=== PATIENT | female | born 1940 | race Caucasian/White ===

== ENCOUNTER → 2017-12-22 08:14 | Outpatient (CLI) | payer MEDICARE, OTHER ==
[2011-09-02 13:23] VITALS: BMI 26.6
[2017-12-22 08:48] LABS: ANION GAP 13.1 mmol/L (8-16); CALCIUM 8.7 mg/dL (8.5-10.1); CARBON DIOXIDE 24.5 mmol/L (21.0-32.0); CREATININE - SERUM 1.5 mg/dL (0.6-1.3); POTASSIUM - SERUM 4.6 mmol/L (3.5-5.1)
== END | disposition home or self-care (01) ==
LOC: D.LAB 08:14 → D.CT 08:30 → D.LAB 08:45 → D.CT 09:00
PROVIDERS: Family Medicine
DX: I73.9 Peripheral vascular disease, unspecified (principal)

== ENCOUNTER 2020-07-07 10:51 | Inpatient (IN) | payer MEDICARE, OTHER ==
[~2020-07-07] VITALS: Ht 172.7 cm; Wt 85.7 kg
[2020-07-07] MEDS ORDERED: ZYLOPRIM300 MG PO (10:59)
[2020-07-07] MEDS ORDERED: VITAMIN D400 UNI1 PO (10:59)
[2020-07-07] MEDS ORDERED: COREG6.25 MG PO (11:00)
[2020-07-07] MEDS ORDERED: PACERONE200 MG PO (11:00)
[2020-07-07] MEDS ORDERED: PRAVACHOL40 MG PO (11:00)
[2020-07-07] MEDS ORDERED: DIPROLENE 0.05%60 M1 TOPICAL (11:01)
[2020-07-07] MEDS ORDERED: EFUDEX 5 % CREA40 GM TOPICAL (11:01)
[2020-07-07] MEDS ORDERED: LISINOPRIL-HCT1 EAC7 PO (11:02)
[2020-07-07] MEDS ORDERED: KENALOG 0.1 % O15 GM TOPICAL (11:02)
[2020-07-07 11:27] LABS: BASOPHILS 0.1 % (0-2); EOSINOPHILS 2.4 % (0-7); HEMATOCRIT 38.6 % (36.0-48.0); HEMOGLOBIN 12.5 g/dL (12-16); LYMPHOCYTES 8.3 % (15-50); MCH 34.3 pg (26.0-34.0); MCHC 32.4 g/dL (31.0-37.0); MEAN PLATELET VOLUME 10.8 fL (7.4-10.4); MONOCYTES 13.6 % (2-11); NEUTROPHILS 75.6 % (40-80); RBC 3.64 10x6/uL (4.00-5.40); RDW 14.5 % (11.5-14.5); WBC 7.4 10x3/uL (4.8-10.8)
[2020-07-07 11:41] LABS: ANION GAP 11.2 mmol/L (8-16); CALCIUM 8.4 mg/dL (8.5-10.1); CARBON DIOXIDE 24.3 mmol/L (21.0-32.0); CREATININE - SERUM 4.9 mg/dL (0.6-1.3)
[2020-07-07 11:47] LABS: BILIRUBIN - TOTAL 0.72 mg/dL (0.2-1.3); PROTEIN - SERUM 6.8 g/dL (6.4-8.2)
[2020-07-07 11:48] LABS: POTASSIUM - SERUM 4.5 mmol/L (3.5-5.1)
[2020-07-07 12:09] LABS: PLATELET COUNT 164 10x3/uL (130-400)
[2020-07-07 12:28] LABS: AMORPHOUS SEDIMENT <1+ /lpf (NONE SEEN); BACTERIA FEW /HPF (NONE SEEN); BILIRUBIN NEGATIVE (NEGATIVE); EPITHELIAL CELLS 0-5 /hpf (0-5); GRANULAR CAST RARE /lpf (NONE SEEN); KETONE NEGATIVE (NEGATIVE); NITRITE NEGATIVE (NEGATIVE); UROBILINOGEN NORMAL mg/dL (< 2)
[2020-07-07 13:09] VITALS: BP 99/71
[2020-07-07 14:05] VITALS: BP 108/57
--- NOTE | 2020-07-07 15:57 | NUR ---
ARRIVE TO ROOM VIA WHEELCHAIR. AMBULATES WITH CANE TO BED. SINUS STEFANIA ON TELEMETRY. ALERT AND ORIENTED X4. SCDS ON. NO SIGNS OF DISTRESS. IV INFUSING ORDERED. BP-123/63. CONTINUE ADMISSION PROCESS AND SAFETY PRECAUTIONS.
[2020-07-07 16:00] VITALS: BP 129/63; BMI 28.8
[2020-07-07 20:00] VITALS: BP 101/58
[2020-07-08 04:00] VITALS: BP 112/61
[2020-07-08 05:57] LABS: BASOPHILS 0.2 % (0-2); EOSINOPHILS 5.2 % (0-7); HEMATOCRIT 35.3 % (42.0-54.0); HEMOGLOBIN 11.4 g/dL (13.5-17.5); IMMATURE GRANULOCYTES 0.2 % (0-5); LYMPHOCYTES 10.3 % (15-50); MCH 33.8 pg (26.0-34.0); MCHC 32.3 g/dL (31.0-37.0); MCV 104.7 fL (80.0-100.0); MEAN PLATELET VOLUME 10.9 fL (7.4-10.4); NEUTROPHILS 71.1 % (40-80); PLATELET COUNT 154 10x3/uL (130-400); RBC 3.37 10x6/uL (4.20-6.10); RDW 14.5 % (11.5-14.5); WBC 5.9 10x3/uL (4.8-10.8)
[2020-07-08 06:13] LABS: ANION GAP 10.5 mmol/L (8-16); CALCIUM 7.8 mg/dL (8.5-10.1); CREATININE - SERUM 4.1 mg/dL (0.6-1.3); MAGNESIUM - SERUM 1.6 mg/dL (1.8-2.4); PHOSPHOROUS 3.7 mg/dL (2.5-4.9)
[2020-07-08 06:17] LABS: POTASSIUM - SERUM 3.5 mmol/L (3.5-5.1)
--- NOTE | 2020-07-08 07:50 | NUR ---
Recieved report pt awake in bed no complaints.
[2020-07-08 08:00] VITALS: BP 129/62
[2020-07-08 20:00] VITALS: BP 135/66
[2020-07-09] VITALS (9 sets, daily range): BP systolic 95–152; BP diastolic 56–73
[2020-07-09 06:06] LABS: BASOPHILS 0.2 % (0-2); EOSINOPHILS 5.7 % (0-7); HEMOGLOBIN 11.2 g/dL (13.5-17.5); IMMATURE GRANULOCYTES 0.2 % (0-5); LYMPHOCYTES 9.7 % (15-50); MCH 33.6 pg (26.0-34.0); MCV 105.1 fL (80.0-100.0); MEAN PLATELET VOLUME 10.4 fL (7.4-10.4); MONOCYTES 15.7 % (2-11); NEUTROPHILS 68.5 % (40-80); PLATELET COUNT 160 10x3/uL (130-400); RBC 3.33 10x6/uL (4.20-6.10); RDW 14.6 % (11.5-14.5); WBC 6.1 10x3/uL (4.8-10.8)
[2020-07-09 06:32] LABS: ANION GAP 13.9 mmol/L (8-16); CARBON DIOXIDE 21.7 mmol/L (21.0-32.0); CREATININE - SERUM 3.7 mg/dL (0.6-1.3); POTASSIUM - SERUM 3.6 mmol/L (3.5-5.1)
--- NOTE | 2020-07-09 17:49 | NUR ---
VERBALLY EXPLAINED CONSENT FORMS FOR SURGERY TO PT THIS TIME--UNDERSTANDING STATED TO ALL--CONSENTS SIGNED/PT AND WITNESSED/GABY/DERREK AND JOSE/DERREK/NSG TECHNICAL ASSISTANCE CONSULTANT. VERBALLY EXPLAINED NPO STATUS AFTER MIDNIGHT AT THIS TIME--PT STATED UNDERSTANDING AT THIS TIME
--- NOTE | 2020-07-09 20:02 | NUR ---
REPORT RECIEVED AND ROUNDING COMPLETE, PATIENT SITTING IN BED IN BED IN HIGH FOWLERS, REVIEWED THE PLAN WITH THE PATIENT FOR SURGERY TOMORROW. TALKED WITH PATIENT TO REINFORCE NPO AFTER MIDNIGHT. PATIENT STATES NO NEEDS AT THIS TIME. SHOWS NO DISTRESS. RIGHT FOREARM PIV THAT IS PATENT AND RUNNING FLUIDS AT THIS TIME. CALL LIGHT WIHTIN REACH AND BED IN LOWEST LOCKED POSITION.
[2020-07-10] VITALS (8 sets, daily range): BP systolic 102–147; BP diastolic 46–70
[2020-07-10 04:50] LABS: BASOPHILS 0.2 % (0-2); EOSINOPHILS 5.8 % (0-7); HEMATOCRIT 33.5 % (42.0-54.0); HEMOGLOBIN 10.8 g/dL (13.5-17.5); LYMPHOCYTES 10.3 % (15-50); MCH 34.1 pg (26.0-34.0); MCHC 32.2 g/dL (31.0-37.0); MCV 105.7 fL (80.0-100.0); MEAN PLATELET VOLUME 10.2 fL (7.4-10.4); MONOCYTES 12.1 % (2-11); NEUTROPHILS 71.6 % (40-80); PLATELET COUNT 160 10x3/uL (130-400); RBC 3.17 10x6/uL (4.20-6.10); RDW 14.7 % (11.5-14.5); WBC 6.5 10x3/uL (4.8-10.8)
[2020-07-10 05:00] LABS: ANION GAP 14.3 mmol/L (8-16); CALCIUM 7.5 mg/dL (8.5-10.1); CARBON DIOXIDE 19.3 mmol/L (21.0-32.0); POTASSIUM - SERUM 3.6 mmol/L (3.5-5.1)
--- NOTE | 2020-07-10 07:05 | NUR ---
recieved report pt resting in bed NPO for procedure consents on chart EKG completed.
--- NOTE | 2020-07-10 12:46 | NUR ---
Rehab Prescreening Consult recieved and the chart has been reviewed. He is scheduled for the OR today. He will need a PT eval post op to see what his functional needs are after surgery. Amy Nagy RN Clinical Liaison, Rehab
--- NOTE | 2020-07-10 12:46 | MORECARE ---
CASE MANAGEMENT DISCHARGE SUMMARY PATIENT: OLIVER FARMER UNIT: [id number] ADM DATE: 07/07/20 AGE: 80 : 41 SEX: M ROOM/BED: D.2105 AUTHOR: LIZ CORMIER PHYSICIAN: REFERRING PHYSICIAN: NOEMI CHAVEZ MD DATE OF SERVICE: 07/10/20 Discharge Plan Patient Name: OLIVER FARMER [facility] [facility] 1940 Planned Disposition: Inpatient Rehab Anticipated Discharge Date: 07/12/20 Discharge Date: Expected LOS: 5 Initial Reviewer: [email or web address] Initial Review Date: 07/10/2020 Generated: 07/10/20 1:45 pm DCPIA - Discharge Planning Initial Assessment Updated by [email or web address]: Charity Arguelles on 07/10/20 12:42 pm * Is the patient Alert and Oriented? Yes * How many steps to enter\exit or inside your home? 2/0 * PCP Dr. Nicole * Pharmacy [facility] 7N * Preadmission Environment Home Alone * ADLs Independent * Equipment Cane Walker * List name and contact numbers for known caregivers / representatives who currently or will assist patient after discharge: Norbert Dobson [facility] - [phone] * Verbal permission to speak to the caregivers and representatives has been obtained from the patient. Yes * Community resources currently utilized None * Additional services required to return to the preadmission environment? Yes * Can the patient safely return to the preadmission environment? Yes * Has this patient been hospitalized within the prior 30 days at any hospital? No Patient Name: OLIVER FARMER Page 34132 at 1246 All edits/amendments must be made on the electronic document DICTATION DATE: 07/10/20 1245 CONFERENCE CONCIERGE: HUGH 07/10/20 1245 RPT#: [id number] DC DATE: STATUS: ADM IN [facility] [address] [place] [address] END OF REPORT
--- NOTE | 2020-07-10 12:53 | MORECARE ---
CASE MANAGEMENT DISCHARGE SUMMARY PATIENT: OLIVER FARMER UNIT: [id number] ADM DATE: 07/07/20 AGE: 80 : 41 SEX: M ROOM/BED: D.1719 AUTHOR: GENIA,DOC PHYSICIAN: REFERRING PHYSICIAN: NOEMI CHAVEZ MD DATE OF SERVICE: 07/10/20 Discharge Plan Patient Name: OLIVER FARMER Facility: [facility]:[place] : 1940 Planned Disposition: Inpatient Rehab Anticipated Discharge Date: 07/12/20 Discharge Date: Expected LOS: 5 Initial Reviewer: [email or web address] Initial Review Date: 07/10/2020 Generated: 07/10/20 1:52 pm Comments DCP- Discharge Planning Updated by [email or web address]: Charity Arguelles on 07/10/20 11:[address] Patient Name: OLIVER FARMER Admission Status: ER Accout number: [id number] Admission Date: 07-07-2020 : 1940 Admission Diagnosis:ACUTE KIDNEY FAILURE, UNSPECIFIED Attending: NOEMI CHAVEZ Current LOS: 3 Anticipated DC Date: 07-12-2020 Planned Disposition: Inpatient Rehab Primary Insurance: MEDICARE A & B Discharge Planning Comments: CM met with patient and his daughter to complete initial dc planning assessment. CM educated patient on the CM role and verbal consent given by patient to complete assessment. Patient lives at home alone. CM discussed availability of home health, rehab services, and medical equipment. Patient would like a referral to inpatient rehab at [facility]. He states he would like to get home as soon as possible. If not accepted by [facility] inpatient rehab a referral will need to be sent to [facility] as his second choice. His daughter lives in [place] and will stay here until he is in rehab, then states her brother will come when he is ready for discharge. I spoke with Syeda in inpatient rehab and screen ordered. Possible discharge Monday to inpatient rehab if medically stable and accepted. CM will continue to follow and will assist as needed with dc plans/needs. Editor Managing Newspaper: Charity Arguelles DCPIA - Discharge Planning Initial Assessment Updated by [email or web address]: Charity Arguelles on 07/10/20 12:42 pm * Is the patient Alert and Oriented? Yes * How many steps to enter\exit or inside your home? 2/0 * PCP Dr. Nicole * Pharmacy [facility] 7N * Preadmission Environment Home Alone * ADLs Independent * Equipment Cane Walker * List name and contact numbers for known caregivers / representatives who currently or will assist patient after discharge: Norbert Dobson - DTR - [phone] * Verbal permission to speak to the caregivers and representatives has been obtained from the patient. Yes * Community resources currently utilized None * Additional services required to return to the preadmission environment? Yes * Can the patient safely return to the preadmission environment? Yes * Has this patient been hospitalized within the prior 30 days at any hospital? No Last DP export: 07/10/20 11:46 a Patient Name: OLIVER FARMER Page 31881 at 1253 All edits/amendments must be made on the electronic document DICTATION DATE: 07/10/20 125 RESIDENTIAL PROGRAM MANAGER: HUGH 07/10/20 1252 RPT#: [id number] DC DATE: STATUS: ADM IN [facility] [address] [place] [address] END OF REPORT
--- NOTE | 2020-07-10 13:42 | NUR ---
PATIENT HAS RED SCRATCH AREAS ON BILATERAL ELBOW CREASES, REDNESS AND BRUISING NOTED ON LEFT ANKLE AND LEG, TWORLEY.
--- NOTE | 2020-07-10 15:00 | NUR ---
RECIEVED BACK FROM SURGERY A&OX4 RLE CAST NOTED NO COMPLAINTS. IV FLUIDS RESUMED DIET RESUMED TOLERATED WELL. VOIDING IN THE URINAL.
--- NOTE | 2020-07-10 19:30 | NUR ---
PT IN BED, AAO X 3, RESP EVEN AND UNLABORED, NO DISTRESS NOTED, CL IN REACH, SR UP X 2.
--- NOTE | 2020-07-11 03:30 | NUR ---
HOLLINGSWORTH PLACED TO URINARY RETENTION, BLADDER SCANNED BEFORE HOLLINGSWORTH PLACED, 1100CC URINE OBTAINED AT THIS TIME.
--- NOTE | 2020-07-11 03:58 | NUR ---
COMPLETE BED CHANGE DONE AT THIS TIME.
--- NOTE | 2020-07-11 04:03 | NUR ---
I have reviewed this patient and I concur with the Shift Assessment completed by the Licensed Practical Nurse today this shift.
--- NOTE | 2020-07-11 04:32 | NUR ---
PT UNABLE TO VOID, PT BLADDER SCANNED SHOWED 950 CC OF URINE IN BLADDER AT THIS TIME. HOLLINGSWORTH CATH PLACED AT THIS TIME.
[2020-07-11 05:33] VITALS: BP 119/57
[2020-07-11 06:13] LABS: BASOPHILS 0.2 % (0-2); HEMATOCRIT 37.5 % (42.0-54.0); HEMOGLOBIN 12.3 g/dL (13.5-17.5); IMMATURE GRANULOCYTES 0.4 % (0-5); LYMPHOCYTES 4.1 % (15-50); MCH 34.7 pg (26.0-34.0); MCHC 32.8 g/dL (31.0-37.0); MCV 105.9 fL (80.0-100.0); MEAN PLATELET VOLUME 11.1 fL (7.4-10.4); MONOCYTES 13.7 % (2-11); NEUTROPHILS 79.6 % (40-80); PLATELET COUNT 154 10x3/uL (130-400); RBC 3.54 10x6/uL (4.20-6.10); WBC 10.7 10x3/uL (4.8-10.8)
[2020-07-11 06:28] LABS: ANION GAP 16.1 mmol/L (8-16); CALCIUM 7.8 mg/dL (8.5-10.1); CARBON DIOXIDE 17.9 mmol/L (21.0-32.0); CREATININE - SERUM 2.8 mg/dL (0.6-1.3)
[2020-07-11 08:31] VITALS: BP 121/71
--- NOTE | 2020-07-11 10:15 | OP ---
PATIENT NAME: OLIVER FARMER MEDICAL RECORD: [id number] :42 LOCATION:D.M2 D.2105 ADMISSION DATE:07/07/20 SURGEON: INDIANA SANTOS MD DATE OF OPERATION: 07/10/2020 PREOPERATIVE DIAGNOSIS: Displaced left lateral malleolus fracture. POSTOPERATIVE DIAGNOSIS: Displaced left lateral malleolus fracture. PROCEDURE: Open reduction and internal fixation of displaced left lateral malleolus fracture. SURGEON: Indiana Santos MD PRINT BUYER: ZULMA Campoverde. INTRAOPERATIVE COMPLICATIONS: None. SUMMARY OF PATHOLOGIC FINDINGS: Consistent with preoperative radiographs. The patient had a displaced lateral malleolus fracture with medial clear space widened. This reduced nicely with internal fixation of the left lateral malleolus. IMPLANTS USED: [place] VariAx 2 plating system. OPERATIVE SUMMARY IN DETAIL: After obtaining the appropriate preoperative orthopedic surgery consent as well as anesthetic consultation, evaluation, and clearance, the patient was brought to the operating room and placed on the operating table in the supine position. After adequate general laryngeal mask airway was administered, a tourniquet was placed about the proximal aspect of the left lower extremity. Please note it was not used during this case. The left lower extremity was prepped and draped in a routine sterile fashion. Incision was made in line with the fibula. This was taken down to the level of the fracture. Fracture hematoma was removed using micro curettage as well as lavage. Reduction maneuver was performed with [id number] reduction clamp and this was held in place with a provisional 0.062 K-wire. The appropriate length plate was then placed under fluoroscopic guidance and a combination of both locking and nonlocking screws was utilized for stabilization of the fibula in anatomic position. Having completed this, AP and lateral views were taken and submitted for radiologist's review. The wound was copiously irrigated and closed with 2-0 Vicryl followed by skin karen. Sterile dressings were applied. Posterior L&U splint was applied. The patient was awakened and taken to the recovery room in stable condition. All final needle and sponge counts were correct. NTS:[id number] Voice Confirmation ID: [id number] DOCUMENT ID: [id number] OPERATIVE REPORT [id number] OLIVER FARMER MD, JAMES KEVIN at 1015 CC: [id number] DICTATION DATE: 07/10/20 1357 CASH APPLICATIONS CLERK: 07/10/20 1754 ADM IN [facility] [address] [place] [id number]
--- NOTE | 2020-07-11 10:54 | NUR ---
REHAB PRESCREENING Rehab continues to follow this patient who is POD #1. PT evalualtion is pending. Rehab admission criteria to be assessed after PT eval is entered. Thank you for this referral! Arleth Cotton, FISH AND GAME CLUB MANAGER Rehab PD
[2020-07-11 11:45] VITALS: BP 91/53
--- NOTE | 2020-07-11 16:21 | NUR ---
CONTACTED DR KESSLER/ANSWERING SERVICE--DR KESSLER CALLED BACK AT APPROX 1620--THIS NURSE EXPLAINS TO DR KESSLER THAT PT B/P 76/41--DILAUDID COT ASSEMBLER PUMP STOPPED, IVF INCREASED TO 100CC/HR--PT HAS COREG DUE AT THIS TIME. PT IS ASYMPTOMATIC SITTING UP IN HOSPITAL BED TALKING TO NURSE AND DAUGHTER--DENIES ANY PAIN--PT HAS NORCO ORDERED PO FOR PAIN IF NEEDED--PT ALSO HAS A REDDENED AREA TO THE LEFT ARM NEW ORDERS FROM DR KESSLER: HOLD COREG 1700 DOSE, INCREASE IVF TO 100CC/HR, MONITOR PT BEFORE AND REPORT BACK IF NEEDED.
[2020-07-11 16:26] VITALS: BP 76/41
--- NOTE | 2020-07-11 18:19 | NUR ---
AT APPROX 1500 CHANGED PT'S YASEMIN BANDAGES TO LEFT LOWER EXTREMITY--SEROSANGINOUS FLUID NOTED TO BANDAGES--ABD PADS APPLIED ABOVE THE CAST TO CATCH THE FLUID--PT TOLERATED ALL WELL. NO DISTRESS NOTED. TRACK ANNOUNCER IN ROOM TO GIVE PT BED BATH AT THIS TIME. NO FURTHER NEEDS VOICED. DAUGHTER IN ROOM.
[2020-07-11 18:29] VITALS: BP 87/39
[2020-07-11 20:46] VITALS: BP 92/47
[2020-07-12 00:05] VITALS: BP 109/55
[2020-07-12 05:34] VITALS: BP 103/79
[2020-07-12 06:26] LABS: BASOPHILS 0.2 % (0-2); EOSINOPHILS 1.5 % (0-7); HEMOGLOBIN 10.5 g/dL (13.5-17.5); IMMATURE GRANULOCYTES 0.3 % (0-5); MCH 33.4 pg (26.0-34.0); MCHC 31.8 g/dL (31.0-37.0); MCV 105.1 fL (80.0-100.0); MEAN PLATELET VOLUME 10.4 fL (7.4-10.4); MONOCYTES 8.2 % (2-11); NEUTROPHILS 80.8 % (40-80); RBC 3.14 10x6/uL (4.20-6.10)
[2020-07-12 06:33] LABS: PLATELET COUNT 193 10x3/uL (130-400); WBC 6.6 10x3/uL (4.8-10.8)
[2020-07-12 06:46] LABS: ANION GAP 10.4 mmol/L (8-16); CALCIUM 7.4 mg/dL (8.5-10.1); CARBON DIOXIDE 20.8 mmol/L (21.0-32.0); CREATININE - SERUM 2.7 mg/dL (0.6-1.3)
[2020-07-12 06:53] LABS: POTASSIUM - SERUM 3.2 mmol/L (3.5-5.1)
[2020-07-12 08:23] VITALS: BP 110/55
[2020-07-12 12:19] VITALS: BP 110/62
[2020-07-12 16:00] VITALS: BP 102/49
--- NOTE | 2020-07-12 18:51 | NUR ---
PATIENT RESTING IN BED WITH EYES CLOSED AND NO S/S OF DISTRESS. BED IN LOWEST POSITION AND CALL LIGHT WITHIN REACH. WILL CONTINUE TO MONITOR.
[2020-07-12 21:02] VITALS: BP 102/47
--- NOTE | 2020-07-12 21:55 | NUR ---
ADMINISTERED MEDS PER ORDERS. PATIENT DENIES OTHER NEEDS. WILL CONTINUE TO MONITOR.
[2020-07-13 00:45] VITALS: BP 108/52
[2020-07-13 04:37] VITALS: BP 113/74
[2020-07-13 07:03] LABS: ANION GAP 9.7 mmol/L (8-16); CALCIUM 7.3 mg/dL (8.5-10.1); CARBON DIOXIDE 25.8 mmol/L (21.0-32.0); CREATININE - SERUM 2.3 mg/dL (0.6-1.3); POTASSIUM - SERUM 3.5 mmol/L (3.5-5.1)
[2020-07-13 07:41] LABS: BASOPHILS 0 % (0-2); EOSINOPHILS 2.9 % (0-7); HEMATOCRIT 30.6 % (42.0-54.0); HEMOGLOBIN 9.7 g/dL (13.5-17.5); IMMATURE GRANULOCYTES 0.1 % (0-5); LYMPHOCYTES 9.1 % (15-50); MCH 33.3 pg (26.0-34.0); MCHC 31.7 g/dL (31.0-37.0); MCV 105.2 fL (80.0-100.0); MEAN PLATELET VOLUME 10.2 fL (7.4-10.4); MONOCYTES 11.3 % (2-11); NEUTROPHILS 76.6 % (40-80); PLATELET COUNT 211 10x3/uL (130-400); RBC 2.91 10x6/uL (4.20-6.10); RDW 14.8 % (11.5-14.5); WBC 6.9 10x3/uL (4.8-10.8)
[2020-07-13 07:50] VITALS: BP 121/61
[2020-07-13 12:01] VITALS: BP 136/66
[2020-07-13 13:28] VITALS: Ht 172.7 cm; Wt 85.7 kg
[2020-07-13] MEDS ORDERED: ELIQUIS2.5 MG PO (14:06)
[2020-07-13] MEDS ORDERED: MIRALAX17 GM PO (14:07)
[2020-07-13] MEDS ORDERED: HYDROCODON-ACE1 EA10 PO (14:07)
--- NOTE | 2020-07-13 15:44 | MORECARE ---
CASE MANAGEMENT DISCHARGE SUMMARY PATIENT: OLIVER FARMER UNIT: [id number] ADM DATE: 07/07/20 AGE: 80 : 41 SEX: M ROOM/BED: D.2106 AUTHOR: LIZ CORMIER PHYSICIAN: REFERRING PHYSICIAN: NOEMI CHAVEZ MD DATE OF SERVICE: 07/13/20 Discharge Plan Patient Name: OLIVER FARMER Facility: [facility]:[place] : 1940 Planned Disposition: Inpatient Rehab Anticipated Discharge Date: 07/12/20 Discharge Date: Expected LOS: 5 Initial Reviewer: [email or web address] Initial Review Date: 07/10/2020 Generated: 07/13/20 4:44 pm Comments DCP- Discharge Planning Updated by [email or web address]: Charity Arguelles on 07/13/20 2:[address] Patient Name: OLIVER FARMER Encounter No: [id number] : 1940 Primary Insurance: MEDICARE A & B Anticipated DC Date: 07-12-2020 Planned Disposition: Inpatient Rehab External Planned Provider: : DCP follow-up note: Patient and family in agreement with discharge plan. No changes to plan. Discharging to inpatient rehab today. Daughter informed and at bedside. Case management will follow and assist as needed. Charity Kindra DCP- Discharge Planning Updated by [email or web address]: Charity Arguelles on 07/10/20 11:[address] Patient Name: OLIVER FARMER Admission Status: ER Accout number: [id number] Admission Date: 07-07-2020 : 1940 Admission Diagnosis:ACUTE KIDNEY FAILURE, UNSPECIFIED Attending: NOEMI CHAVEZ Current LOS: 3 Anticipated DC Date: 07-12-2020 Planned Disposition: Inpatient Rehab Primary Insurance: MEDICARE A & B Discharge Planning Comments: CM met with patient and his daughter to complete initial dc planning assessment. CM educated patient on the CM role and verbal consent given by patient to complete assessment. Patient lives at home alone. CM discussed availability of home health, rehab services, and medical equipment. Patient would like a referral to inpatient rehab at [facility]. He states he would like to get home as soon as possible. If not accepted by [facility] inpatient rehab a referral will need to be sent to [facility] as his second choice. His daughter lives in [place] and will stay here until he is in rehab, then states her brother will come when he is ready for discharge. I spoke with Syeda in inpatient rehab and screen ordered. Possible discharge Monday to inpatient rehab if medically stable and accepted. CM will continue to follow and will assist as needed with dc plans/needs. Bowling Ball Grader And Marker: Charity Arguelles DCPIA - Discharge Planning Initial Assessment Updated by [id number]: Charity Arguelles on 07/10/20 12:42 pm * Is the patient Alert and Oriented? Yes * How many steps to enter\exit or inside your home? 2/0 * PCP Dr. Nicole * Pharmacy [facility] * Preadmission Environment Home Alone * ADLs Independent * Equipment Cane Walker * List name and contact numbers for known caregivers / representatives who currently or will assist patient after discharge: Norbert Dobson DTR - [phone] * Verbal permission to speak to the caregivers and representatives has been obtained from the patient. Yes * Community resources currently utilized None * Additional services required to return to the preadmission environment? Yes * Can the patient safely return to the preadmission environment? Yes * Has this patient been hospitalized within the prior 30 days at any hospital? No Coverage Notice Reviewer: [id number] Byron Arguelles Notice Issued Date-Time: 07/10/2020 13:32 Notice Type: Patient Choice Letter Notice Delivered To: Family Member Relationship to Patient: Daughter Iron Caster Name: NORBERT Delivery Method: HAND - Hand Delivered Janie Days: Prior Verbal Notification: Recipient Understood Notice: Yes Recipient Signature: Yes Med Rec Note Co-signed by Attending: Coverage Notice Comment: BR[facility] FOR INPATIENT REHAB AT [facility] OR [facility] Reviewer: [email or web address] Byron Arguelles Notice Issued Date-Time: 07/13/2020 14:58 Notice Type: IM Discharge Notice Notice Delivered To: Patient Relationship to Patient: Self Iron Caster Name: Delivery Method: HAND - Hand Delivered Janie Days: Prior Verbal Notification: Recipient Understood Notice: Yes Recipient Signature: Yes Med Rec Note Co-signed by Attending: Coverage Notice Comment: IMM explained, signed, given, copy placed in MR Last DP export: 07/10/20 11:53 a Patient Name: OLIVER FARMER Page 21335 at 1544 All edits/amendments must be made on the electronic document DICTATION DATE: 07/13/20 154 SUPERVISOR WEBBING: HUGH 07/13/20 1544 RPT#: [id number] DC DATE: STATUS: ADM IN [facility] [address] [place] [address] END OF REPORT
--- NOTE | 2020-07-13 18:46 | NUR ---
REPORT CALLED TO NATHANAEL RAND RN IN REHAB AND PATIENT MOVED VIA BED .
--- NOTE | 2020-07-14 13:52 | MORECARE ---
CASE MANAGEMENT DISCHARGE SUMMARY PATIENT: OLIVER FARMER UNIT: [id number] ADM DATE: 07/07/20 AGE: 80 : 41 SEX: M ROOM/BED: D.2100 AUTHOR: LIZ CORMIER PHYSICIAN: REFERRING PHYSICIAN: NOEMI CHAVEZ MD DATE OF SERVICE: 07/14/20 Discharge Plan Patient Name: OLIVER FARMER Facility: [facility]:[place] : 1940 Planned Disposition: Inpatient Rehab Anticipated Discharge Date: 07/12/20 Discharge Date: 07/13/2020 Expected LOS: 5 Initial Reviewer: [email or web address] Initial Review Date: 07/10/2020 Generated: 07/14/20 2:51 pm Comments DCP- Discharge Planning Updated by [email or web address]: Charity Arguelles on 07/13/20 2:[address] Patient Name: OLIVER FARMER Encounter No: [id number] : 1940 Primary Insurance: MEDICARE A & B Anticipated DC Date: 07-12-2020 Planned Disposition: Inpatient Rehab External Planned Provider: : DCP follow-up note: Patient and family in agreement with discharge plan. No changes to plan. Discharging to inpatient rehab today. Daughter informed and at bedside. Case management will follow and assist as needed. Charity Kindra DCP- Discharge Planning Updated by [email or web address]: Charity Cameliajenn on 07/10/20 11:[address] Patient Name: OLVIER FARMER Admission Status: ER Accout number: [id number] Admission Date: 07-07-2020 : 1940 Admission Diagnosis:ACUTE KIDNEY FAILURE, UNSPECIFIED Attending: NOEMI CHAVEZ Current LOS: 3 Anticipated DC Date: 07-12-2020 Planned Disposition: Inpatient Rehab Primary Insurance: MEDICARE A & B Discharge Planning Comments: CM met with patient and his daughter to complete initial dc planning assessment. CM educated patient on the CM role and verbal consent given by patient to complete assessment. Patient lives at home alone. CM discussed availability of home health, rehab services, and medical equipment. Patient would like a referral to inpatient rehab at [facility]. He states he would like to get home as soon as possible. If not accepted by [facility] inpatient rehab a referral will need to be sent to [facility] his second choice. His daughter lives in [place] and will stay here until he is in rehab, then states her brother will come when he is ready for discharge. I spoke with Syeda in inpatient rehab and screen ordered. Possible discharge Monday to inpatient rehab if medically stable and accepted. CM will continue to follow and will assist as needed with dc plans/needs. Director Of Sustainability Programs: Charity Arguelles DCPIA - Discharge Planning Initial Assessment Updated by [id number]: Charity Arguelles on 07/10/20 12:42 pm * Is the patient Alert and Oriented? Yes * How many steps to enter\exit or inside your home? 2/0 * PCP Dr. Nicole * [facility] * Preadmission Environment Home Alone * ADLs Independent * Equipment Cane Walker * List name and contact numbers for known caregivers / representatives who currently or will assist patient after discharge: Norbert Dobson [facility] - [phone] * Verbal permission to speak to the caregivers and representatives has been obtained from the patient. Yes * Community resources currently utilized None * Additional services required to return to the preadmission environment? Yes * Can the patient safely return to the preadmission environment? Yes * Has this patient been hospitalized within the prior 30 days at any hospital? No Coverage Notice Reviewer: [id number] Byron Arguelles Notice Issued Date-Time: 07/10/2020 13:32 Notice Type: Patient Choice Letter Notice Delivered To: Family Member Relationship to Patient: Daughter Client Relationship Manager Name: NORBERT Delivery Method: HAND - Hand Delivered Janie Days: Prior Verbal Notification: Recipient Understood Notice: Yes Recipient Signature: Yes Med Rec Note Co-signed by Attending: Coverage Notice Comment: BREND[facility] FOR INPATIENT REHAB AT [facility] Reviewer: [id number] Byron Arguelles Notice Issued Date-Time: 07/13/2020 14:58 Notice Type: IM Discharge Notice Notice Delivered To: Patient Relationship to Patient: Self Client Relationship Manager Name: Delivery Method: HAND - Hand Delivered Janie Days: Prior Verbal Notification: Recipient Understood Notice: Yes Recipient Signature: Yes Med Rec Note Co-signed by Attending: Coverage Notice Comment: IMM explained, signed, given, copy placed in MR Last DP export: 07/13/20 2:44 p Patient Name: OLIVER FARMER Page 23122 at 1352 All edits/amendments must be made on the electronic document DICTATION DATE: 07/14/20 135 FOOD SERVICE COORDINATOR: HUGH 07/14/20 1351 RPT#: [id number] DC DATE:07/13/20 STATUS: DIS IN [facility] [address] [facility] [place] [address] END OF REPORT
== END 2020-07-13 18:50 | DRG 493 ==
LOC: D.ER 10:51 → EDSEX 13:44 → D.M2 13:44
PROVIDERS: Family Medicine; Orthopaedic Surgery; ADMIT Family Medicine; ATTEND Family Medicine
PROC: 0QSK04Z Reposition Left Fibula with Internal Fixation Device, Open Approach (ICD-10-PCS; principal; 2020-07-10 12:15)
DX: S82.62XA Displaced fracture of lateral malleolus of left fibula, initial encounter for closed fracture (principal); N17.9 Acute kidney failure, unspecified; N39.0 Urinary tract infection, site not specified; E86.9 Volume depletion, unspecified; I95.2 Hypotension due to drugs; T50.2X5A Adverse effect of carbonic-anhydrase inhibitors, benzothiadiazides and other diuretics, initial encounter; I10 Essential (primary) hypertension; X58.XXXA Exposure to other specified factors, initial encounter; Z95.0 Presence of cardiac pacemaker

== ENCOUNTER 2020-07-13 18:41 | Inpatient (IN) | payer MEDICARE, OTHER ==
[~2020-07-13] VITALS: Ht 172.7 cm; Wt 85.7 kg
[~2020-07-13 18:41] MED LIST: COREG6.25 MG PO; DIPROLENE 0.05%60 M1 TOPICAL; EFUDEX 5 % CREA40 GM TOPICAL; ELIQUIS2.5 MG PO; HYDROCODON-ACE1 EA10 PO; KENALOG 0.1 % O15 GM TOPICAL; LISINOPRIL-HCT1 EAC7 PO; MIRALAX17 GM PO; PACERONE200 MG PO; PRAVACHOL40 MG PO; VITAMIN D400 UNI1 PO; ZYLOPRIM300 MG PO
--- NOTE | 2020-07-13 18:45 | NUR ---
PT ADMITTED TO REHAB TO DR. DUMONT. PT SITTING UP IN BED. RIGHT FOREARM IV WITHOUT REDNESS OR SWELLING. DRESSING INTACT. LEFT ANKLE DRESSING INTACT. DENIES ANY NEEDS OR PAIN. CALL LIGHT AND WATER WITHIN REACH. FALL PRECAUTIONS IN PLACE. CPOC
[2020-07-13 23:38] VITALS: BP 145/67; BMI 28.8
--- NOTE | 2020-07-14 00:30 | NUR ---
PT LYING IN BED SUPINE EYES CLOSED RESTING. HOB ELEVATED. BUE ELEVATED SMALL AMOUNT OF WEEPING NOTED ON PAD. RR EVEN AND UNLABORED. HOLLINGSWORTH PATENT FREE FROM KINKS. CALL LIGHT AND WATER WITHIN REACH. FALL PRECAUTIONS IN PLACE. WILL CONTINUE TO MONITOR
--- NOTE | 2020-07-14 03:50 | NUR ---
PT LYING IN BED SUPINE EYES CLOSED RESTING. HOB ELEVATED. RR EVEN AND UNLABORED. CALL LIGHT WITHIN REACH. CPOC
--- NOTE | 2020-07-14 04:05 | NUR ---
HOLLINGSWORTH CLAMMPED FOR UA.
[2020-07-14 05:27] LABS: BASOPHILS 0.2 % (0-2); EOSINOPHILS 5.6 % (0-7); HEMATOCRIT 31.4 % (42.0-54.0); HEMOGLOBIN 9.9 g/dL (13.5-17.5); IMMATURE GRANULOCYTES 0.2 % (0-5); LYMPHOCYTES 8.8 % (15-50); MCH 33.4 pg (26.0-34.0); MCHC 31.5 g/dL (31.0-37.0); MCV 106.1 fL (80.0-100.0); MEAN PLATELET VOLUME 9.9 fL (7.4-10.4); MONOCYTES 11.3 % (2-11); NEUTROPHILS 73.9 % (40-80); PLATELET COUNT 226 10x3/uL (130-400); RBC 2.96 10x6/uL (4.20-6.10); RDW 14.8 % (11.5-14.5); WBC 6.6 10x3/uL (4.8-10.8)
--- NOTE | 2020-07-14 05:35 | NUR ---
PT LYING IN BED AWAKE. UA COLLECTED FROM HOLLINGSWORTH. PT DENIES ANY PAIN OR NEEDS. NO ACUTE CHANGES IN CONDITION NOTED THIS SHIFT. CALL LIGHT WITHIN REACH. CPOC
[2020-07-14 05:44] LABS: ANION GAP 7.6 mmol/L (8-16); CALCIUM 7.6 mg/dL (8.5-10.1); CARBON DIOXIDE 28.2 mmol/L (21.0-32.0); CREATININE - SERUM 2.4 mg/dL (0.6-1.3); POTASSIUM - SERUM 3.8 mmol/L (3.5-5.1)
[2020-07-14 07:32] LABS: BILIRUBIN NEGATIVE (NEGATIVE); KETONE SMALL mg/dL (NEGATIVE); NITRITE NEGATIVE (NEGATIVE); UROBILINOGEN NORMAL mg/dL (< 2)
[2020-07-14 07:33] LABS: BACTERIA FEW HPF (NONE SEEN); EPITHELIAL CELLS NSEEN /hpf (0-5)
[2020-07-14 08:01] VITALS: BP 111/63
[2020-07-14 10:09] VITALS: BMI 28.7
--- NOTE | 2020-07-14 12:44 | NUR ---
SITTING UP IN BED EATING LUNCH. WEEPING EDEMA STILL NOTED TO LUE. IT IS WRAPED IN PAPER CHUX TO ABSORB WEEKING EDEMA. LLE HAS YASEMIN WRAP AROUND IT FROM TOES TO HIGH THIGH. F/C DRAINING CLOUDY URINE. HE HAS PENILE EDEMA. DENIES INCREASED SOB. CALL LIGHT IN REACH
--- NOTE | 2020-07-14 14:52 | NUR ---
patient admitted to rehab from acute floor.PCP is Dr. Nicole. dme at home is a cane and a walker. discharge plans are for patient to return home but if unable and he needs snf he would like [facility]. will continue to follow with patient.
[2020-07-14 19:37] VITALS: BP 157/42
--- NOTE | 2020-07-14 19:48 | NUR ---
RECIEVED UP IN BED WITH EYES OPOENA ND TV ON. ALERT AND ORIENTED X4. F/C INTACT WITH CLEAR YELLOW URINE TO BEDSIDE DRAINAGE BAG. WEEPING EDEMA TO LT ARM AND RT LEG. SOFT CAST TO LT ANKLE. DENIES ANY NEEDS AT THIS TIME.
[2020-07-15 06:34] LABS: BASOPHILS 0.1 % (0-2); EOSINOPHILS 5.6 % (0-7); HEMATOCRIT 33.1 % (42.0-54.0); HEMOGLOBIN 10.3 g/dL (13.5-17.5); IMMATURE GRANULOCYTES 0.1 % (0-5); LYMPHOCYTES 8.5 % (15-50); MCHC 31.1 g/dL (31.0-37.0); MCV 106.1 fL (80.0-100.0); MEAN PLATELET VOLUME 9.9 fL (7.4-10.4); MONOCYTES 9.6 % (2-11); NEUTROPHILS 76.1 % (40-80); PLATELET COUNT 261 10x3/uL (130-400); RBC 3.12 10x6/uL (4.20-6.10); RDW 14.8 % (11.5-14.5); WBC 7.5 10x3/uL (4.8-10.8)
[2020-07-15 07:10] LABS: ANION GAP 9.5 mmol/L (8-16); CALCIUM 7.8 mg/dL (8.5-10.1); CARBON DIOXIDE 26.3 mmol/L (21.0-32.0); CREATININE - SERUM 2.2 mg/dL (0.6-1.3); POTASSIUM - SERUM 3.8 mmol/L (3.5-5.1)
[2020-07-15 08:00] VITALS: BP 140/65
--- NOTE | 2020-07-15 08:00 | NUR ---
SHIFT ASSMT COMPLETED.
--- NOTE | 2020-07-15 13:59 | NUR ---
CARE TEAM MEETING; PATIENT IS NEW TO UNIT AND WILL BE RA AT NEXT MEETING. WILL CONTINUE TO FOLLOW WITH PATIENT.
[2020-07-15 19:08] VITALS: BP 136/55
--- NOTE | 2020-07-15 19:25 | NUR ---
RECEIVED PT LYING IN BED AWAKE. HOB ELEVATED. ALERT AND ORIENTED X4. DENIES ANY PAIN OR NEEDS. LEFT ANKLE SOFT CAST INTACT. LUE WEEPING EDEMA NOTED CHANGED DRESSING. NO ACUTE DISTRESS NOTED. HOLLINGSWORTH PATENT FREE FROM KINKS. CALL LIGHT AND WATER WITHIN REACH. FALL PRECAUTIONS IN PLACE. CPOC
--- NOTE | 2020-07-16 00:52 | NUR ---
PT LYING IN BED EYES CLOSED RESTING. HOB ELEVATED. RR EVEN AND UNLABORED. CALL LIGHT AND WATER WITHIN REACH. FALL PRECAUTIONS IN PLACE. CPOC
--- NOTE | 2020-07-16 03:07 | NUR ---
PT LYING IN BED EYES CLOSED RESTING. RR EVEN AND UNLABORED. CALL LIGHT WITHIN REACH. WILL CONTINUE TO MONITOR
--- NOTE | 2020-07-16 05:39 | NUR ---
PT LYING IN BED EYES CLOSED RESTING. EASILY AROUSED WITH STIMULI. REPOSITIONED PT MIDLINE. BRIDGED HEELS. EMPTIED 500ML FROM [place]. DENIES ANY PAIN OR NEEDS. CALL LIGHT AND WATER WITHIN REACH. WILL CONTINUE TO MONITOR
[2020-07-16 07:58] VITALS: BP 135/76
--- NOTE | 2020-07-16 08:00 | NUR ---
SHIFT ASSMT COMPLETED.
--- NOTE | 2020-07-16 19:26 | NUR ---
RECIEVED UP IN BED WITH HOB ELEVATED. ALERT AND ORIENTED X4. UP WITH ASSIST TO W/C. F/C INTACT WITH CLEAR YELLOW URINE DRAINING TO BEDISDE DRAINAGE BAG.PACEMAKER/ DEFIB TO LT CHEST. TOP OF LT FOOT RED ANSD SWOLLEN. BRUISING TO POSTERIOR LT CALVE. ASSISTED TO B/R. DENIES ANY OTHER NEEDS.
[2020-07-16 19:39] VITALS: BP 133/56
--- NOTE | 2020-07-17 07:30 | NUR ---
WAKES EASILY. DENIES NEEDS OR C/O. URINE IN F/C BAG IS CLOUDY. CALL LIGHT IN REACH
[2020-07-17 07:50] VITALS: BP 148/56
[2020-07-17 09:34] LABS: BASOPHILS 0.2 % (0-2); EOSINOPHILS 7.8 % (0-7); HEMATOCRIT 33.6 % (42.0-54.0); HEMOGLOBIN 10.4 g/dL (13.5-17.5); IMMATURE GRANULOCYTES 0.3 % (0-5); MCH 32.7 pg (26.0-34.0); MCV 105.7 fL (80.0-100.0); MEAN PLATELET VOLUME 9.7 fL (7.4-10.4); MONOCYTES 8.1 % (2-11); NEUTROPHILS 74.6 % (40-80); PLATELET COUNT 241 10x3/uL (130-400); RBC 3.18 10x6/uL (4.20-6.10); RDW 14.6 % (11.5-14.5); WBC 6.4 10x3/uL (4.8-10.8)
[2020-07-17 09:56] LABS: ANION GAP 8.8 mmol/L (8-16); CALCIUM 7.8 mg/dL (8.5-10.1); CARBON DIOXIDE 27.5 mmol/L (21.0-32.0); CREATININE - SERUM 1.9 mg/dL (0.6-1.3); POTASSIUM - SERUM 4.3 mmol/L (3.5-5.1)
--- NOTE | 2020-07-17 14:01 | NUR ---
Nutrition Follow-up: Diet: Regular + Chocolate Boost TID PO intake: ~51% average x last 6 meals. He states that his appetite is up and down. States that he has been drinking 100% of oral nutrition supplements. States that he prefers Ensure over Boost and request that I change it. He had eaten about 60% of his lunch tray today. Last BM: 07/17/20. Wt: 189# (07/14/20) Meds noted: lasix, miralax Labs noted: BUN 32(H), Cr 1.9(H), GFR 36(L), Glu 118(H) Recommend continue current diet. Will change oral nutrition supplment to Ensure per patient request. RD following.
[2020-07-17 14:25] VITALS: Ht 172.7 cm; Wt 85.7 kg
[2020-07-17 16:29] LABS: ERYTHROCYTE SEDIMENTATION RATE 31 mm/hr (0-20)
--- NOTE | 2020-07-17 16:37 | NUR ---
RESTING QUIETLY IN BED, EYES CLOSED. RESP EFFORT NON LABORED. HAS BLE ELEVATED AND LLE STILL WRAPED BY YASEMIN WRAP. WEEPING EDEMA STILL NOTED TO LUE. CALL LIGHT IN REACH
[2020-07-17 18:17] LABS: CREATININE - URINE 31.4 mg/dL (30-125); PRO/CRE RATIO URINE 1.2 mg/g; PROTEIN - URINE 36.4 mg/dL (0.0-11.9)
[2020-07-17 19:47] VITALS: BP 139/62
[2020-07-17 19:49] LABS: NITRITE NEGATIVE (NEGATIVE)
[2020-07-17 19:50] LABS: BACTERIA FEW HPF (NONE SEEN); BILIRUBIN NEGATIVE (NEGATIVE); KETONE NEGATIVE (NEGATIVE); UROBILINOGEN NORMAL mg/dL (< 2); WHITE CELLS - URINE OCC HPF (0-1)
--- NOTE | 2020-07-17 19:51 | NUR ---
AWAKE AND ALERT. RESTING IN BED WITH RESPIRATIONS UNLABORED. WEEPING EDEMA NOTED IN LEFT LEG/FOOT AND LEFT ARM. [place] PATENT. NO ACUTE DISTRESS NOTED.
--- NOTE | 2020-07-18 02:28 | NUR ---
SLEEPING WITH RESPIRATIONS UNLABORED. NO DISTRESS NOTED.
--- NOTE | 2020-07-18 05:46 | NUR ---
QUIET HOURS. NO ACUTE CHANGES IN CONDITION THIS SHIFT. LEFT LEG WRAP AND BRACE IN PLACE. ASSISTED TO BATHROOM AND BACK TO BED. CONTINUES TO HAVE WEEPING EDEMA IN LEFT ARM. DARRICK PATENT. CALL LIGHT IN REACH.
--- NOTE | 2020-07-18 08:30 | NUR ---
SITTING UP IN BED EATING BREAKFAST. DENIES NEEDS OR C/O. BED IN LOWEST POSITON, SIDE RAILS UP X2, BED IN LOWEST POSITION.
[2020-07-18 11:27] VITALS: BP 98/60
--- NOTE | 2020-07-18 15:17 | NUR ---
SITTING UP IN BED RESTING QUIETLY. F/C PATENT AND DRAINING CLOUDY URINE. NURSE IS WORKING WITH PT ON BLADDER TRAINING. HE JUST VOIDED AROUND HIS CATHETER WHEN HE WAS CLAMPTED OFF. DENIES PAIN TO LLE. BED IN LOWEST POSITON, SIDE RAILS UP X2, BED IN LOWEST POSITION.
--- NOTE | 2020-07-18 19:33 | NUR ---
AWAKE AND ALERT. RESTING IN BED WITH RESPIRATIONS UNLABORED. HAS VOIDED 200ML IN URINAL. DRESSING AND SPLINT INTACT TO LEFT LOWER LEG. TOES WARM AND PINK. NO ACUTE DISTRESS NOTED. CALL LIGHT IN REACH.
[2020-07-18 20:00] VITALS: BP 123/60
--- NOTE | 2020-07-19 00:48 | NUR ---
SLEEPING WITH RESPIRATIONS UNLABORED. NO DISTRESS NOTED.
--- NOTE | 2020-07-19 05:04 | NUR ---
QUIET HOURS. NO ACUTE CHANGES IN CONDITION THIS SHIFT. RESTING IN BED WITH NO DISTRESS NOTED.
[2020-07-19 07:45] VITALS: BP 146/89
--- NOTE | 2020-07-19 11:51 | NUR ---
SITTING UP IN BED FOR LUNCH. STILL VOIDING IN URINAL AND DENIES PROBLEMS. URINE COLOR IS CLOUDY. LLE STILL WRAPED IN YASEMIN WRAP WITH SOFT CAST AROUND FOOT AND ANKLE. HE IS NWB TO LLE. BED IN LOWEST POSITION, SIDE RAILS UP X2, CALL LIGHT IN REACH
--- NOTE | 2020-07-19 16:52 | NUR ---
SITTING UP IN BED WATCHING FOOTBALL GAME ON TV. IS PLEASANT AND POLITE. DENIES NEEDS OR C/O. BED IN LOWEST POSITION, SIDE RAILS UP X2, CALL LIGHT IN REACH
[2020-07-19 19:39] VITALS: BP 111/61
--- NOTE | 2020-07-19 19:58 | NUR ---
AWAKE AND ALERT. RESTING IN BED WITH RESPIRATIONS UNLABORED. LEFT ANKLE DRESSING INTACT. MILD WEEPING CONTINUES FROM LEFT ARM. NO ACUTE DISTRESS NOTED. CALL LIGHT IN REACH.
--- NOTE | 2020-07-20 01:09 | NUR ---
RESTING QUIETLY WITH EYES CLOSED AND RESPIRATIONS UNLABORED. NO DISTRESS NOTED.
--- NOTE | 2020-07-20 05:27 | NUR ---
QUIET HOURS. NO ACUTE CHANGES IN CONDITION THIS SHIFT. NO DISTRESS NOTED. CALL LIGHT IN REACH.
[2020-07-20 07:17] LABS: BASOPHILS 0.3 % (0-2); EOSINOPHILS 9.8 % (0-7); HEMATOCRIT 33.9 % (42.0-54.0); HEMOGLOBIN 10.4 g/dL (13.5-17.5); IMMATURE GRANULOCYTES 0.3 % (0-5); LYMPHOCYTES 9.6 % (15-50); MCH 32.4 pg (26.0-34.0); MCHC 30.7 g/dL (31.0-37.0); MCV 105.6 fL (80.0-100.0); MEAN PLATELET VOLUME 10.2 fL (7.4-10.4); MONOCYTES 11.4 % (2-11); NEUTROPHILS 68.6 % (40-80); PLATELET COUNT 265 10x3/uL (130-400); RBC 3.21 10x6/uL (4.20-6.10)
[2020-07-20 07:25] LABS: ANION GAP 10.7 mmol/L (8-16); CALCIUM 8.2 mg/dL (8.5-10.1); CARBON DIOXIDE 26.7 mmol/L (21.0-32.0); CREATININE - SERUM 2.2 mg/dL (0.6-1.3); POTASSIUM - SERUM 4.4 mmol/L (3.5-5.1)
[2020-07-20 08:00] VITALS: BP 128/60
[2020-07-20 18:08] LABS: UPE RAND - ALBUMIN 39.7 % (()); UPE RAND - ALPHA 1 GLOBULIN 6.3 % (()); UPE RAND - ALPHA 2 GLOBULIN 11.2 % (()); UPE RAND - GAMMA GLOBULIN 13.7 % (())
[2020-07-20 18:08] LABS: SPE - A/G RATIO 1.2 (0.7-1.7); SPE - ALBUMIN 2.3 g/dL (2.9-4.4); SPE - ALPHA-1 GLOBULIN 0.2 g/dL (0.0-0.4); SPE - ALPHA-2 GLOBULIN 0.6 g/dL (0.4-1.0); SPE - BETA GLOBULIN 0.6 g/dL (0.7-1.3); SPE - GAMMA GLOBULIN 0.6 g/dL (0.4-1.8); SPE - M-SPIKE Not Observed g/dL (Not Observed); SPE - TOTAL PROTEIN 4.2 g/dL (6.0-8.5)
[2020-07-20 19:26] VITALS: BP 137/48
--- NOTE | 2020-07-20 20:01 | NUR ---
AWAKE AND ALERT. RESTING IN BED WITH RESPIRATIONS UNLABORED. LEFT LOWER LEG SPLINT/CAST IN PLACE. TOES WARM AND PINK. NO ACUTE DISTRESS NOTED. CALL LIGHT IN REACH.
--- NOTE | 2020-07-21 01:30 | NUR ---
RESTING IN BED WITH RESPIRATIONS UNLABORED. NO DISTRESS NOTED.
--- NOTE | 2020-07-21 03:39 | NUR ---
RESTING IN BED WITH EYES CLOSED AND RESPIRATIONS UNLABORED. NO DISTRESS NOTED.
--- NOTE | 2020-07-21 05:05 | NUR ---
QUIET HOURS. NO ACUTE CHANGES IN CONDITION THIS SHIFT. RESTING IN BED WITH NO DISTRESS NOTED.
[2020-07-21 08:00] VITALS: BP 124/57
--- NOTE | 2020-07-21 08:00 | NUR ---
SHIFT ASSMT COMPLETED.SOFT CAST TO LEFT ANKLE WITH YASEMIN WRAP.
--- NOTE | 2020-07-21 11:06 | NUR ---
Nutrition Follow-up: Diet: Regular [facility] Soft PO intake: PO has not been recorded recently. He ate 25% of breakfast and 100% of Ensure. states that patient is drinking most of Ensure being sent. States that his appetite is not much better but that he would eat frosted flakes. Last BM: 07/16/20. Wt: 189# (07/14/20) Meds noted: miralax. Labs noted: Na 132(L), Glu 152(H) Recommend continue current diet and oral nutrition supplements. RD following.
--- NOTE | 2020-07-21 12:24 | NUR ---
Nutrition Follow-up: Diet: Regular + Chocolate Ensure TID PO intake: Was ~58% average last week, PO intake has not been being recorded into EMR lately. Patient states that his appetite is a little better and that he is drinking Ensure. Last BM: 07/20/20. Wt: 189# (07/14/20) Meds noted: lasix, miralax. Labs noted: BUN 37(H), Cr 2.2(H), GFR 31(L) Recommend continue current diet and oral nutrition supplements. Encouraged PO intake. Will continue to honor food preferences. RD following.
[2020-07-21 17:28] VITALS: BP 139/51
[2020-07-21 18:47] VITALS: BP 130/49
--- NOTE | 2020-07-21 19:00 | NUR ---
RECEIVED PT SITTING UP IN BED WATCHING TV. ALERT AND ORIENTED X4. DENIES ANY PAIN OR NEEDS. LEFT ANKLE SOFT CAST INTACT. BUE +2 EDEMA NOTED. NO ACUTE DISTRESS NOTED. CALL LIGHT AND URINAL INTACT. FALL PRECAUTIONS IN PLACE. CPOC
--- NOTE | 2020-07-21 23:06 | NUR ---
PT LYING IN BED EYES CLOSED RESTING. RR EVEN AND UNLABORED. CALL LIGHT AND URINAL WITHIN REACH. WILL CONTINUE TO MONITOR
--- NOTE | 2020-07-22 01:09 | NUR ---
PT LYING IN BED EYES CLOSED RESTING. HOB ELEVATED. RR EVEN AND UNLABORED. CALL LIGHT WITHIN REACH. CPOC
--- NOTE | 2020-07-22 04:13 | NUR ---
PT LYING IN BED EYES CLOSED RESTING. HOB ELEVATED. RR EVEN AND UNLABORED. CALL LIGHT AND URINAL WITHIN REACH. WILL CONTINUE TO MONITOR
[2020-07-22 07:17] LABS: BASOPHILS 0.3 % (0-2); EOSINOPHILS 8.4 % (0-7); HEMATOCRIT 34.4 % (42.0-54.0); HEMOGLOBIN 10.7 g/dL (13.5-17.5); IMMATURE GRANULOCYTES 0.3 % (0-5); LYMPHOCYTES 10.2 % (15-50); MCH 32.6 pg (26.0-34.0); MCHC 31.1 g/dL (31.0-37.0); MCV 104.9 fL (80.0-100.0); MEAN PLATELET VOLUME 10.1 fL (7.4-10.4); MONOCYTES 10.8 % (2-11); PLATELET COUNT 274 10x3/uL (130-400); RBC 3.28 10x6/uL (4.20-6.10); WBC 7.5 10x3/uL (4.8-10.8)
[2020-07-22 07:20] LABS: CALCIUM 8.6 mg/dL (8.5-10.1); CARBON DIOXIDE 29.1 mmol/L (21.0-32.0); CREATININE - SERUM 1.8 mg/dL (0.6-1.3); POTASSIUM - SERUM 4.1 mmol/L (3.5-5.1)
[2020-07-22 07:23] VITALS: BP 138/71
--- NOTE | 2020-07-22 08:00 | NUR ---
SHIFT ASSMT COMPLETED.DENIES NEEDS.EDEMA CONTINUES TO IMPROVE.
--- NOTE | 2020-07-22 14:12 | NUR ---
CARE TEAM MEETING: PATIENT IS PROGRESSING IN THERAPY. TENATIVE DC DATE IS 07/28/20. WILL CONTINUE TO FOLLOW WITH PATIENT.
[2020-07-22 17:16] VITALS: BP 135/68
--- NOTE | 2020-07-22 18:55 | NUR ---
RECEIVED PT SITTING UP IN BED. ALERT AND ORIENTED X4. DENIES ANY NEEDS OR PAIN. URINAL EMPTIED 200ML. LEFT ANKLE SOFT CAST INTACT. +2 EDEMA NOTED TO LLE. BUE +1 EDEMA. LUE WEEPING SMALL AMOUNT. NO ACUTE DISTRESS NOTED. CALL LIGHT AND URINAL WITHIN REACH. FALL PRECAUTIONS IN PLACE. CPOC
[2020-07-22 19:56] VITALS: BP 143/35
--- NOTE | 2020-07-23 03:22 | NUR ---
PT LYING IN BED ON LEFT SIDE EYES CLOSED RESTING. RR EVEN AND UNLABORED. URINAL EMPTIED 200ML. CALL LIGHT WITHIN REACH. WILL CONTINUE TO MONITOR
--- NOTE | 2020-07-23 05:50 | NUR ---
PT LYING IN BED EYES CLOSED RESTING. HOB ELEVATED. NO ACUTE CHANGES IN CONDITION NOTED. 200ML YELLOW URINE EMPTIED FROM URINAL. CALL LIGHT AND URINAL WITHIN REACH. FALL PRECAUTIONS IN PLACE. CPOC
[2020-07-23 07:45] VITALS: BP 132/66
--- NOTE | 2020-07-23 08:00 | NUR ---
SITTING UP IN BED FOR BREAKFAST. DENIES NEEDS OR C/O. LLE STILL WRAPED FROM KNEE TO TOE IN YASEMIN WRAP AND SOFT CAST. SIDE RAILS UP X2. BED IN LOWEST POSITION. CALL LIGHT IN REACH.
--- NOTE | 2020-07-23 16:00 | NUR ---
LAYING IN BED RESTING QUIETLY. EYES CLOSED. NO S/S DISTRESS OR NEEDS. SIDE RAILS UP X2. BED IN LOWEST POSITION. CALL LIGHT IN REACH.
[2020-07-23 19:31] VITALS: BP 131/61
--- NOTE | 2020-07-23 19:44 | NUR ---
AWAKE AND ALERT. RESTING IN BED WITH RESPIRATIONS UNLABORED. NO DISTRESS NOTED. CAST TO LEFT LOWER LEG IN PLACE.
--- NOTE | 2020-07-24 00:06 | NUR ---
SLEEPING WITH RESPIRAITONS UNLABORED. NO DISTRESS NOTED.
--- NOTE | 2020-07-24 03:40 | NUR ---
RESTING QUIETLY. NO DISTRESS NOTED.
--- NOTE | 2020-07-24 04:59 | NUR ---
QUIET HOURS. NO ACUTE CHANGES IN CONDITION. MEDICATED FOR C/O PAIN. SEE MAR. RESPIRATIONS UNLABORED. CALL LIGHT IN REACH.
--- NOTE | 2020-07-24 05:01 | NUR ---
QUIET HOURS. NO ACUTE CHANGES IN CONDITION THIS SHIFT. LEFT LEG CAST/SPLINT IN PLACE. NO DISTRESS NOTED.
[2020-07-24 07:56] VITALS: BP 159/69
--- NOTE | 2020-07-24 08:15 | NUR ---
SITTING UP IN BED WITH EYES CLOSED. NO S/S DISTRESS. LLE ELEVATED ON PILLOWS. URINAL AT BEDSIDE. BED IN LOWEST POSITION, SIDE RAILS UP X2. CALL LIGHT IN REACH
[2020-07-24 08:47] LABS: ANION GAP 9.4 mmol/L (8-16); CALCIUM 8.4 mg/dL (8.5-10.1); CARBON DIOXIDE 28.2 mmol/L (21.0-32.0); CREATININE - SERUM 2.2 mg/dL (0.6-1.3); POTASSIUM - SERUM 3.6 mmol/L (3.5-5.1)
[2020-07-24 08:53] LABS: BASOPHILS 0.3 % (0-2); EOSINOPHILS 11.9 % (0-7); HEMATOCRIT 38.1 % (42.0-54.0); HEMOGLOBIN 11.5 g/dL (13.5-17.5); IMMATURE GRANULOCYTES 0.3 % (0-5); LYMPHOCYTES 9.7 % (15-50); MCH 32.1 pg (26.0-34.0); MCHC 30.2 g/dL (31.0-37.0); MCV 106.4 fL (80.0-100.0); MEAN PLATELET VOLUME 10.2 fL (7.4-10.4); MONOCYTES 8.5 % (2-11); NEUTROPHILS 69.3 % (40-80); PLATELET COUNT 295 10x3/uL (130-400); RBC 3.58 10x6/uL (4.20-6.10); RDW 15.1 % (11.5-14.5); WBC 7.2 10x3/uL (4.8-10.8)
--- NOTE | 2020-07-24 14:44 | NUR ---
SITTING UP IN WC IN ROOM WATCHING TV. DENIES PAIN TO LLE. STILL HAS SOFT CAST AND YASEMIN WRAP ON LLE. BED IN LOWEST POSITION, SIDE RAILS UP X2. CALL LIGHT IN REACH
--- NOTE | 2020-07-24 19:05 | NUR ---
RECEIVED PT SITTING UP IN BED WATCHING TV. ALERT AND ORIENTED X4. DENIES ANY PAIN OR NEEDS. NO ACUTE DISTRESS NOTED. VS STABLE. LEFT ANKLE SOFT CAST INTACT. 2 FINGER WIDTH AT TOP AND BOTTOM OF CAST. LEFT PACER/DEFIB. NO IV OR O2 NOTED. CALL LIGHT AND URINAL WITHIN REACH. FALL PRECAUTION IN PLACE. CPOC
[2020-07-24 20:22] VITALS: BP 135/72
--- NOTE | 2020-07-25 00:35 | NUR ---
PT LYING IN BED ON RIGHT SIDE EYES CLOSED RESTING. RR EVEN AND UNLABORED. CALL LIGHT AND URINAL WITHIN REACH. WILL CONTINUE TO MONITOR
--- NOTE | 2020-07-25 03:00 | NUR ---
PT LYING IN BED EYES CLOSED RESTING. RR EVEN AND UNLABORED. CALL LIGHT WITHIN REACH. WILL CONTINUE TO MONITOR
--- NOTE | 2020-07-25 06:36 | NUR ---
PT LYING IN BED LEFT SIDE EYES CLOSED RESTING. NO ACUTE CHANGES IN CONDITION NOTED THIS SHIFT. CALL LIGHT AND URINAL WITHIN REACH. FALL PRECAUTIONS IN PLACE. CPOC
[2020-07-25 08:00] VITALS: BP 114/63
--- NOTE | 2020-07-25 08:00 | NUR ---
SHIFT ASSMT COMPLETED.
--- NOTE | 2020-07-25 19:25 | NUR ---
RECEIVED PT SITTING UP IN BED WATCHING TV. ALERT AND ORIENTED X4. DENIES ANY NEEDS OR PAIN. NO ACUTE DISTRESS NOTED. LEFT ANKLE SOFT CAST INTACT, ELEVATED WITH PILLOW. BLE +2 EDEMA, BUE +1 EDEMA. 200ML YELLOW URINE EMPTIED FROM URINAL. CALL LIGHT AND WATER WITHIN REACH. FALL PRECAUTIONS IN PLACE. CPOC
[2020-07-25 20:00] VITALS: BP 142/66
--- NOTE | 2020-07-25 22:44 | NUR ---
PT LYING IN BED ON LEFT SIDE EYES CLOSED RESTING. RR EVEN AND UNLABORED. CALL LIGHT WITHIN REACH. WILL CONTINUE TO MONITOR
--- NOTE | 2020-07-26 02:18 | NUR ---
PT LYING IN BED RIGHT SIDE EYES CLOSED RESTING. EMPTIED 200ML FROM URINAL NO ACUTE DISTRESS NOTED. WILL CONTINUE TO MONITOR
--- NOTE | 2020-07-26 04:50 | NUR ---
PT LYING IN BED RESTING. NO ACUTE CHANGES IN CONDITION THIS SHIFT. RR EVEN AND UNLABORED. URINAL EMPTIED 200ML. WILL CONTINUE TO MONITOR
[2020-07-26 08:00] VITALS: BP 94/64
--- NOTE | 2020-07-26 08:00 | NUR ---
SHIFT ASSMT COMPLETED.COREG W/H S/T BP 94/64 AND PULSE 51.ASYMPTOMATIC.CL IN REACH.BREAKFAST GIVEN.
--- NOTE | 2020-07-26 15:46 | RHP ---
PATIENT: OLIVER FARMER MEDICAL RECORD: [id number] ACCOUNT: [id number] LOCATION:[facility]1119 : 41 ADMISSION DATE: 07/13/20 REHABILITATION HISTORY AND PHYSICAL EXAMINATION POST ADMISSION PHYSICIAN EXAMINATION ADMITTING DIAGNOSIS: Uremic myopathy. HISTORY OF PRESENT ILLNESS: The patient is a 80-year-old gentleman who presented to ED on 07/10/2020 from his PCP office. He had a recent addition of YASEMIN inhibitor and hydrochlorothiazide to his blood pressure regimen and had some abnormal labs and hypotension. His blood pressure was 88/50. Upon arrival, he apparently received 1 unit fluid bolus outside his PCP's office. He had a recent fall, was having pain in his left ankle. He also reported fatigue, weakness and loss of appetite. He was found to be hydrated and have a low-grade temperature. He was somewhat bradycardic. He was in acute renal failure with BUN and creatinine of 62 and 4.9, likely from a combination of new blood pressure meds and hypotension. His blood pressure was improved after fluid. He did have an x-ray of an ankle which showed an oblique fracture of his distal fibula, avulsion fracture of the medial malleolus, widening of the ankle mortise medially. He was admitted for telemetry and ortho consulted. On 07/10/2020, he went to the OR for open reduction internal fixation of displaced lateral malleolus fracture. Postop was complicated by anemia and some hypotension and also hypokalemia. He had some confusion, disorientation also. Renal functions continued to trend downward with gentle rehydration. His BUN and creatinine were 36 and 2.3. Previously, he was living alone, was independent with ADLs, using a single point cane. Currently set up for mod assist for his ADLs and mobility due to nonweightbearing status on his left lower extremity. He tires easily. He wants to be able to regain his strength and return home. COMORBIDITIES: In this patient include acute kidney injury, altered mental status, anemia, bradycardia, coronary artery disease, decreased mobility, dehydration, weakness and difficulty walking. PAST MEDICAL HISTORY: Significant for cataracts, pacemaker defibrillator placement, hypertension, coronary artery disease, melanoma. PAST SURGICAL HISTORY: Includes pacemaker defibrillator and he has had stent placement. ALLERGIES: AN ANTIBIOTIC THAT HE DOES NOT KNOW AT THIS TIME. CURRENT MEDICATIONS: Include Kenalog to apply topically as needed for itching. He is on Pravachol 80 mg daily, vitamin D 400 units daily, amiodarone 200 mg daily, carvedilol 6.25 mg t.i.d. with meals, MiraLax 17 grams b.i.d., Eliquis 2.5 mg b.i.d., and Dimock 10/325 one tab every 4 hours p.r.n. HABITS: No alcohol or tobacco use. FAMILY HISTORY: Noncontributory. SOCIAL HISTORY: The patient hopes to return back home and get back to his prior level of functioning. REVIEW OF SYSTEMS: HISTORY AND PHYSICAL [id number] OLIVER FARMER GENERAL: Does complain of some weakness and fatigue. HEENT: Denies cold, cough, or congestion. CARDIOVASCULAR: Denies any chest pain. PHYSICAL EXAMINATION: VITAL SIGNS: Stable, afebrile. GENERAL: A well-developed gentleman in no acute distress upon exam. HEENT: Normocephalic and atraumatic. Mucosa moist. NECK: Supple. No lymphadenopathy. LUNGS: Clear at this time in upper [place]. HEART: Regular rate and rhythm. He is somewhat bradycardic. ABDOMEN: Soft, benign and nondistended. Positive bowel sounds times 4. EXTREMITIES: No clubbing, cyanosis or edema. His postop area looks pretty good. NEUROLOGIC: Does have some noted weakness in his proximal muscles of his thighs. LABORATORY DATA: His admit UA did show a small amount of ketones and blood. He had trace leukocyte esterase. He did have 5-10 white blood cells. His white count is 6.6, H&H 9.9 and 31.4 with an MCV of 106.1, his platelet count is 228. Sodium 141, potassium 3.8, BUN and creatinine of 35 and 2.4 and blood sugar is noted to be 96. ASSESSMENT: This is a 80-year-old gentleman admitted to the rehab with a working diagnosis of disuse myopathy. The patient has potential to make improvement. We instituted the following multidisciplinary therapies including not limited to physical, occupational, respiratory, speech, nutritional services, prosthetics and orthotics. Given his complex medical condition and risks for more complications, rehabilitation services cannot be provided at a low level of care such as alf facility. PLAN: 1. Admit to [facility] for inpatient therapy to include the following disciplines; A. Physical therapy to improve gait, all transfer skills and bed mobility to a modified independent level. B. Occupational therapy to improve activities of daily living. C. Case management to help with discharge planning and placement options. D. Nutrition to assist with nutritional needs. E. Rehabilitation nursing to assist in monitoring the patient's underlying medical conditions and to assist with any type of bowel or bladder management. 2. The patient's current medication and medical care will be continued. 3. Placed on standard fall precautions. 4. The patient's estimated length of stay is approximately 7-10 days. 5. We will discuss the patient during care team staff meeting this week. I am going to go ahead and check a vitamin B12, folate and D level on him in the morning secondary to an elevated MCV and risk for fall. 6. I am going to see again in the morning and we will discuss with care team then. TRANSINT:[id number] Voice Confirmation ID: [id number] DOCUMENT ID: [id number] MARY LOU notes whether there has been none or any medical/functional change since admission: HISTORY AND PHYSICAL [id number] OLIVER FARMER - No change since preadmission screen. MARY LOU attests patient continues to be appropriate for IRF: - Continues to be appropriate. NOEMI DUMONT MD at 1546 CC: [id number] DICTATION DATE: 07/14/20 1223 [employer] CRM DEVELOPER: 07/14/20 1658 ADM IN [place] [id number] [place] [address]
[2020-07-26 17:55] VITALS: BP 152/63
--- NOTE | 2020-07-26 19:00 | NUR ---
RECEIVED PT SITTING UP IN BED WATCHING TV. ALERT AND ORIENTED X4. NO ACUTE DISTRESS NOTED. DENIES ANY NEEDS OR PAIN. EMPTIED URINAL 200ML. LEFT ANKLE SOFT CAST INTACT. POD X16 WILL HAVE DAYSHIFT RN CALL ORTHO TOMORROW AND SEE IF ANGELI CAN BE D/C. BUE/BLE +2 EDEMA NOTED. CALL LIGHT AND WATER WITHIN REACH. FALL PRECAUTIONS IN PLACE. CPOC
[2020-07-26 19:22] VITALS: BP 148/67
--- NOTE | 2020-07-26 19:22 | NUR ---
SHIFT ASSESSMENT COMPLETE. VS STABLE. NO ACUTE DISTRESS NOTED. DENIES ANY NEEDS OR PAIN. CALL LIGHT WITHIN REACH. WILL CONTINUE TO MONITOR
--- NOTE | 2020-07-26 23:13 | NUR ---
PT LYING IN BED EYES CLOSED RESTING. HOB ELEVATED. RR EVEN AND UNLABORED. URINAL EMPTIED 100ML. CALL LIGHT AND WATER WITHIN REACH. WILL CONTINUE TO MONITOR
--- NOTE | 2020-07-27 01:35 | NUR ---
PT LYING IN BED ON LEFT SIDE EYES CLOSED RESTING. RR EVEN AND UNLABORED. URINAL EMPTIED 150ML. WILL CONTINUE TO MONITOR
--- NOTE | 2020-07-27 03:32 | NUR ---
PT LYING IN BED SUPINE EYES CLOSED RESTING. RR EVEN AND UNLABORED. CALL LIGHT WITHIN REACH. WILL CONTINUE TO MONITOR
--- NOTE | 2020-07-27 05:20 | NUR ---
PT LYING IN BED EYES CLOSED RESTING. RR EVEN AND UNLABORED. NO ACUTE CHANGES IN CONDITION THIS SHIFT. CALL LIGHT AND FRESH HYDRATION WITHIN REACH. FALL PRECAUTIONS IN PLACE. CPOC
[2020-07-27 07:14] LABS: BASOPHILS 0.3 % (0-2); EOSINOPHILS 11.1 % (0-7); HEMATOCRIT 36.1 % (42.0-54.0); HEMOGLOBIN 11.1 g/dL (13.5-17.5); IMMATURE GRANULOCYTES 0.3 % (0-5); LYMPHOCYTES 12.1 % (15-50); MCH 32.3 pg (26.0-34.0); MCHC 30.7 g/dL (31.0-37.0); MCV 104.9 fL (80.0-100.0); MONOCYTES 9.4 % (2-11); NEUTROPHILS 66.8 % (40-80); RBC 3.44 10x6/uL (4.20-6.10); RDW 15.1 % (11.5-14.5); WBC 7.2 10x3/uL (4.8-10.8)
[2020-07-27 07:15] LABS: PLATELET COUNT 229 10x3/uL (130-400)
[2020-07-27 07:28] LABS: ANION GAP 9.9 mmol/L (8-16); CALCIUM 8.6 mg/dL (8.5-10.1); CARBON DIOXIDE 26.3 mmol/L (21.0-32.0); CREATININE - SERUM 1.8 mg/dL (0.6-1.3); POTASSIUM - SERUM 4.2 mmol/L (3.5-5.1)
[2020-07-27 07:40] VITALS: BP 150/66
[2020-07-27] MEDS ORDERED: HYDROCODON-ACE1 EA10 PO (09:10)
--- NOTE | 2020-07-27 10:33 | NUR ---
Nutrition Follow-up: Diet: Regular + Ensure TID PO intake: ~89% average x last 9 meals, states that his appetite is okay and that he has been eating well. He is drinking Ensure. Says that he is discharging tomorrow. Last BM: 07/26/20. Wt: 189# (07/14/20), no new weight Meds reviewed. Labs noted: BUN 40(H), Cr 1.8(H), GFR 39(L) Recommend continue current diet and oral nutrition supplements. RD following.
--- NOTE | 2020-07-27 12:52 | NUR ---
SITTING UP IN WC IN ROOM FOR LUNCH. HAS BEEN UP WITH THERAPY THIS MORNING. LLE STILL IN SOFT CAST AND WRAPED WITH YASEMIN WRAP. DENIES INCREASED PAIN. DERREK PROCTOR WHO IS DR SANTOS'S NURSE WAS CALLED ABOUT HIS ANGELI TO LLE. SHE WROTE ORDERS TO DC ANGELI, XR LEG, AND PUT PNEUMATIC BOOT ON LLE INSTEAD OF SOFT CAST. HE IS SCHEDULED TO DC TOMORROW CALL LIGHT IN REACH.
--- NOTE | 2020-07-27 16:22 | NUR ---
ANGELI REMOVED (PER ORDER) AND PNEUMATIC, WALKER BOOT PLACED ON LEG. INCISION IS CLEAN AND HEALING WITH EVEN EDGES. NO S/S INFECTION. TEACHING ON HOW TO USE ORTHO BOOT WITH PT. CALL LIGHT IN REACH. BED IN LOWEST POSITION. SIDE RAILS UP X2
[2020-07-27 19:29] VITALS: BP 126/37
--- NOTE | 2020-07-27 20:00 | NUR ---
AWAKE AND ALERT. RESTING IN BED WITH RESPIRATIONS UNLABORED. NO DISTRESS NOTED. DRESSING INTACT TO LEFT ANKLE. NO DISTRESS NOTED.
--- NOTE | 2020-07-28 00:49 | NUR ---
RESTING IN BED WITH RESPIRATIONS UNLABORED. NO DISTRESS NOTED. CALL LIGHT IN REACH.
--- NOTE | 2020-07-28 02:30 | NUR ---
CONTINUES SLEEPING WITH NO DISTRESS NOTED.
--- NOTE | 2020-07-28 06:19 | NUR ---
QUIET HOURS. NO ACUTE CHANGES IN CONDITION. RESTING IN BED WITH NO DISTRESS NOTED.
--- NOTE | 2020-07-28 08:00 | NUR ---
SITTING UP IN BED WATCHING TV. DENIES INCREASED PAIN TO LLE. INCISION IS STILL INTACT TO LEFT LATERAL SIDE ABOVE ANKLE BONE. PEDAL PULSES PRE PRESENT X2. IS SCHEDULED TO DC HOME TODAY. PNEUMATIC BOOT BY BED. NURSE GAVE INSTRUCTION AND DEMONSTRATION OF BOOT USE YESTERDAY TO PT , WHO STATED HE UNDERSTOOD. BED IN LOWEST POSITION, CALL LIGHT IN REACH, SIDE RAILS UP X2
[2020-07-28 08:36] VITALS: BP 140/68
--- NOTE | 2020-07-28 09:42 | NUR ---
PATIENT DISCHARGING HOME TODAY. [facility] WILL PROVIDE THERAPY AT HOME. NO NEW DME NEEDED AT THIS TIME. DR. SUAREZ 08/03/20 @ 10:30, DR. SANTOS 08/11/20 @ 1:30, DR. MONTES 09/02/20 @ 10:00, DR. JACKSON 08/05/20 @ 11:30. BRENDEN SIGNED, IMM SERVED AND EXPLAINED, ONE GIVEN TO PATIENT AND ONE FILED IN CHART. COMPARE DATA REVIEWED, PATIENT VOICED UNDERSTANDING. DC INSTRUCTIONS FAXED TO PCP, HOME HEALTH AND REVIEWED WITH PATIENT.
== END 2020-07-28 14:00 | disposition home or self-care (01) | DRG 92 ==
LOC: D.REHAB 18:41
PROVIDERS: Internal Medicine Nephrology; ADMIT Emergency Medicine; ATTEND Emergency Medicine
DX: G72.89 Other specified myopathies (principal); N17.9 Acute kidney failure, unspecified; N39.0 Urinary tract infection, site not specified; R41.82 Altered mental status, unspecified; D64.9 Anemia, unspecified; R00.1 Bradycardia, unspecified; I25.10 Atherosclerotic heart disease of native coronary artery without angina pectoris; E86.0 Dehydration; R53.1 Weakness; R26.2 Difficulty in walking, not elsewhere classified; I10 Essential (primary) hypertension; W19.XXXD Unspecified fall, subsequent encounter; S82.402D Unspecified fracture of shaft of left fibula, subsequent encounter for closed fracture with routine healing; S82.52XD Displaced fracture of medial malleolus of left tibia, subsequent encounter for closed fracture with routine healing; E87.6 Hypokalemia; I95.9 Hypotension, unspecified